=== PATIENT | male | born 1965 | race Caucasian/White ===

== ENCOUNTER 2016-10-22 09:48 | Emergency (ER) | payer SELFPAY ==
[~2016-10-22] VITALS: Ht 175.3 cm; Wt 78.0 kg
[2016-10-22 09:53] VITALS: Ht 175.3 cm; Wt 78.0 kg
[2016-10-22] MEDS ORDERED: DIPHTH/TET/ACEL PERTUSS (ADULT) 0.5 ML VIAL IM ONE (10:30)
[2016-10-22] MEDS ORDERED: LIDOCAINE 2%/EPI MPF (SDV) 20 ML VIAL INJ STA (10:33)
--- NOTE | 2016-10-22 11:00 | ERD ---
ER Documentation Chief Complaint Date/Time DATE: 10/22/16 TIME: 10:57 Chief Complaint Laceration to right forearm HPI Patient is a 51-year-old male who presents with a right forearm laceration that he sustained last night at about 2 AM. He accidentally sliced himself with a piece of glass. He does not believe that there is any retained foreign body. He denies any loss of range of motion. He denies any numbness or tingling. Pain is mild. He is unsure of his last tetanus vaccination. ROS All systems reviewed and are negative except as per history of present illness. Allergies Allergies: Coded Allergies: Penicillins (Verified Allergy, Intermediate, 10/22/16) PMhx/Soc Hx Alcohol Use: No Hx Substance Use: No Hx Tobacco Use: No Smoking Status: Never smoker FmHx Family History: No diabetes Physical Exam Vitals Vital Signs Date Time Temp Pulse Resp B/P Pulse Ox O2 Delivery O2 Flow Rate FiO2 10/22/16 09:53 98.3 90 20 135/70 97 Physical Exam General: well developed, well nourished, alert, nontoxic, no distress Head: normocephalic, atraumatic Respiratory: Clear to auscaultation bilaterally, speaks in full sentences, no use of accesory muscles or labored breathing, no rales, ronchi, or wheezing Cardiovascular: RRR, No murmurs Extremities: moving all extremities normally, normal gait, no edema Skin: 2 forearm laceration 1 approximately 5 cm in length 1 approximately 3 cm in length, no bleeding or drainage, no surrounding erythema, nontender, no evidence of retained foreign body Results 24 hrs Current Medications Medications (Trade) Dose Ordered Sig/Shanika Route PRN Reason Start Time Stop Time Status Last Admin Dose Admin Diphtheria/ Tetanus/Acell Pertussis (Adacel) 0.5 ml ONCE ONCE IM 10/22/16 10:30 10/22/16 10:31 DC 10/22/16 10:24 Lidocaine/ Epinephrine (Xylocaine 2%/ Epi Mpf(Sdv)) 20 ml ONCE STAT INJ 10/22/16 10:33 10/22/16 10:35 DC 10/22/16 10:43 Procedures/MDM Patient has 2 forearm lacerations. He was given a tetanus vaccination. He is neurovascular intact. Area was cleaned with normal saline and then prepped with Betadine and 1% lidocaine with epinephrine was used to anesthetize the wound. 6 simple interrupted sutures were placed in the larger laceration and 3 were placed in the small laceration both using 3-0 Prolene. After the area was anesthetized and probed and there is no evidence of retained foreign body and have a low suspicion for retained foreign body given how superficial lacerations are. Patients were dressed and bandaged. Recommended 2 day wound check in 7-10 days for removal of sutures. Recommended this patient follow up with her primary care doctor within 48 hours or return to the emergency room for any worsening of symptoms. However this time I do believe there is suitable for outpatient management. I answered all their questions and they agreed with the plan and were discharged home. Departure Diagnosis: Primary Impression: Laceration Condition: Stable Patient Instructions: Laceration, Extrem (Suture, Staple, Or Tape) [facility] Usted se vasquez hecho un examen mdico de control que le indica que no est en sofia condicin que requiera tratamiento urgente en el Departamento de Emergencia. Un estudio ms profundo y el tratamiento de burnette condicin pueden esperar sin ningn riesgo hasta que usted sea atendida/o en el consultorio de burnette mdico o sofia cl alannah. Es responsabilidad suya arreglar sofia abi para el seguimiento del anne. MANEJO DE CONDICIONES NO URGENTES EN EL FUTURO 1) Si usted tiene un mdico de atencin primaria: Usted debera llamar a burnette mdico de atencin primaria antes de venir al departamento de emergencia. Despus de las horas de consultorio, burnette doctor o burnette asociado/a est disponible por telfono. El mdico o enfermero de rachel en el servicio telefnico puede asesorarle por lucina medio para atender el problema, o anne contrario se puede programar sofia abi. 2) Si usted no tiene un mdico de atencin primaria: Llame al mdico o clnica de referencia que aparece abajo jeanmarie las horas de consultorio para hacer sofia abi para que le vean. CLINICAS: [facility] [phone] [facility] [phone] [facility] [phone] [place] [id number] [phone] [place] [id number] [phone] [facility] [phone] [address] Additional Instructions: Llame al doctor MAANA y ayla sofia ABI PARA DENTRO DE 1-2 SAHU.Dgale a la secretaria que nosotros le instruimos hacer esta abi.Avise o llame si burnette condicin se empeora antes de la abi. Regresa aqui si peor o no mejor. SUTURE REMOVAL:CONSULTE A BURNETTE MDICO PARA SACAR BURNETTE PUNTOS.PARA LA DARRICK 5-6 d as.EN OTRO LUGAR 7-10 andujar. NANDA CHAVEZ PA-C Oct 22, 2016 11:00
== END 2016-10-22 11:03 | disposition home or self-care (01) ==
LOC: FTE 09:48
DX: S51.811A Laceration without foreign body of right forearm, initial encounter (principal); W25.XXXA Contact with sharp glass, initial encounter; Y92.9 Unspecified place or not applicable; Z23 Encounter for immunization
CPT/HCPCS: 90471; 90715